=== PATIENT | female | born 1940 | race Caucasian/White ===

== ENCOUNTER 2017-02-21 10:24 | Emergency (ER) | payer OTHER, MEDICARE ==
[~2017-02-21] VITALS: Ht 162.6 cm; Wt 81.6 kg
[2017-02-21 10:30] VITALS: BP 122/64; PULSE 85; RESP 16; TEMP 97.5; O2SAT 99
--- NOTE | 2017-02-21 10:45 | NUR ---
Patient to ER bed 8 to gown for evaluation. Side rails up. Report given to Michael PEDERSEN.
--- NOTE | 2017-02-21 10:45 | NUR ---
ER Dr. Watson at bedside examining patient.
--- NOTE | 2017-02-21 10:50 | NUR ---
Pt report received from SLAVA Tong. Pt c/o urinary retention since last night. Pt states that she has a hx of UTI's every 4 months. Denies dysuria or hematuria. Family members at bedside.
--- NOTE | 2017-02-21 11:15 | NUR ---
Bladder scanner reveals approx 55 mL retention.
--- NOTE | 2017-02-21 11:20 | NUR ---
In/Out catheter performed using sterile technique. Approximately 15 mL straw colored and cloudy urine collected and sent to lab.
[2017-02-21 11:25] LABS: BLOOD, URINE 1+ (NEGATIVE); CLARITY/URINE CLOUDY (CLEAR); COLOR,URINE YELLOW (YELLOW); GLUCOSE,URINE NEGATIVE (NEGATIVE); KETONES,URINE TRACE (NEGATIVE); LEUKOCYTE ESTERASE ,URINE 3+ (NEGATIVE); NITRITE, URINE NEGATIVE (NEGATIVE); PH,URINE 6.5 (5.0-8.0); PROTEIN URINE TRACE (NEGATIVE)
[2017-02-21 11:36] LABS: BILIRUBIN,URINE NEGATIVE (NEGATIVE)
[2017-02-21 11:39] LABS: BACTERIA,URINE MANY /HPF (None Seen); MUCUS,URINE 1+ /LPF (None Seen); WBC,URINE >100 /HPF (0-3)
[2017-02-21 12:00] VITALS: BP 134/78; PULSE 78; RESP 18; TEMP 98.6; O2SAT 99
--- NOTE | 2017-02-21 12:00 | NUR ---
Patient given written and verbal discharge instructions and verbalizes understanding. ER MD Dr. Watson discussed with patient the results and treatment provided. Patient in stable condition. ID arm band removed. Rx of cipro given. Patient educated on pain management and to follow up with PMD. Pain Scale 0/10 Opportunity for questions provided and answered.
--- NOTE | 2017-02-23 15:53 | NUR ---
Final C & S report reviewed, identified organism is suseptible to Cipro as previously prescribed. No further action indicated.
== END 2017-02-21 12:00 | disposition home or self-care (01) ==
LOC: SED 10:24
DX: N39.0 Urinary tract infection, site not specified (principal); R31.9 Hematuria, unspecified; I10 Essential (primary) hypertension; M41.9 Scoliosis, unspecified
CPT/HCPCS: 81000-TC; 87086; 87186-TC; 99284